=== PATIENT | female | born 1965 | race Caucasian/White ===

== ENCOUNTER 2021-04-21 11:09 | Emergency (ER) | payer OTHER ==
[~2021-04-21] VITALS: Ht 157.5 cm; Wt 92.1 kg
[2021-04-21 11:32] VITALS: BP 121/75
--- NOTE | 2021-04-21 11:42 | NUR ---
patient sent to [facility]
--- NOTE | 2021-04-21 12:45 | NUR ---
55/F presents to ED with c/o right arm numbness. Patient states for 3 days she has been having intermittent right arm numbness, states it started again at 11pm and has been consistent since. Patient states she began experiencing right shoulder pain, starting last night. Patient denies taking anything at home for pain, denies chest pain or shortness of breath.
[2021-04-21 12:59] LABS: BASOPHILS % (AUTO) 0.6 % (0.0-2.0); EOSINOPHILS # (AUTO) 0.2 K/uL (0-0.4); EOSINOPHILS % (AUTO) 2.9 % (0.0-4.0); HEMATOCRIT 39.7 % (36-48); HEMOGLOBIN 13.4 g/dL (12.0-16.0); LYMPHOCYTES # (AUTO) 2.1 K/uL (2.5-16.5); LYMPHOCYTES % (AUTO) 34.1 % (20.5-51.1); MEAN CORPUSCULAR HEMOGLOBIN 30 pg (27-31); MEAN CORPUSCULAR HGB CONC 34 g/dL (33-37); MEAN CORPUSCULAR VOLUME 88.5 fL (80-94); MONOCYTES # (AUTO) 0.6 K/uL (0.8-1.0); MONOCYTES % (AUTO) 10.6 % (1.7-9.3); NEUTROPHILS # (AUTO) 3.1 K/uL (1.8-7.7); NEUTROPHILS % (AUTO) 51.8 % (42.2-75.2); PLATELET COUNT (AUTO) 198 K/uL (140-450); RED BLOOD CELL COUNT(AUTO) 4.49 MIL/uL (4.20-5.40); RED CELL DISTRIBUTION WIDTH 12.8 % (11.6-13.7); WHITE BLOOD COUNT (AUTO) 6.1 K/uL (4.8-10.8)
[2021-04-21 13:14] LABS: ANION GAP 9.8 (8-16); CARBON DIOXIDE 28.8 mmol/L (21-32); CREATININE 0.6 mg/dL (0.6-1.3); POTASSIUM 3.6 mmol/L (3.5-5.1); TOTAL BILIRUBIN 0.3 mg/dL (0.0-1.0)
[2021-04-21] MEDS ORDERED: GABA300C PO (13:21)
--- NOTE | 2021-04-21 13:30 | NUR ---
Patient discharged with v/s stable. Written and verbal after care instructions given and explained. Patient alert, oriented and verbalized understanding of instructions. Ambulatory with steady gait. All questions addressed prior to discharge. ID band removed. Patient advised to follow up with PMD. Rx of Gabapentin given. Patient educated on indication of medication including possible reaction and side effects. Opportunity to ask questions provided and answered.
[2021-04-21 13:32] VITALS: BP 121/75
== END 2021-04-21 13:30 | disposition home or self-care (01) ==
LOC: MED 11:09 → EDBD 11:09 → MED 13:30
DX: E11.40 Type 2 diabetes mellitus with diabetic neuropathy, unspecified (principal); E07.9 Disorder of thyroid, unspecified; Z79.899 Other long term (current) drug therapy
CPT/HCPCS: 36415; 80053; 82948; 84484; 85025; 93005; 99284